=== PATIENT | female | born 1975 | race Caucasian/White ===

== ENCOUNTER 2021-10-10 13:20 | Outpatient (CLI) | payer BC | END 2021-10-10 13:21 | disposition home or self-care (01) | LOC: ULT 13:20 | PROVIDERS: ATTEND Family Medicine | DX: M79.661 Pain in right lower leg (principal) ==

== ENCOUNTER 2021-11-12 10:28 | Outpatient (CLI) | payer BC | END 2021-11-12 10:29 | disposition home or self-care (01) | LOC: RAD 10:28 | PROVIDERS: ATTEND Family Medicine | DX: M25.552 Pain in left hip (principal) ==

== ENCOUNTER 2025-04-04 12:45 | Outpatient (CLI) | payer BC | END 2025-04-04 12:46 | disposition home or self-care (01) | LOC: SCSMRI 12:45 | PROVIDERS: ATTEND Student in an Organized Health Care Education/Training Program | DX: N95.0 Postmenopausal bleeding (principal); D25.9 Leiomyoma of uterus, unspecified; N80.03 Adenomyosis of the uterus | CPT/HCPCS: 72197 ==